=== PATIENT | female | born 1985 | race Caucasian/White ===

== ENCOUNTER 2023-12-02 19:11 | Emergency (ER) | payer OTHER ==
[~2023-12-02] VITALS: Ht 152.4 cm; Wt 65.9 kg
[~2023-12-02 19:11] MED LIST: [UNRECOGNIZED DRUG - OTHER]
[2023-12-02 19:35] VITALS: TEMP 97.9
[2023-12-02 22:47] LABS: BASOPHILS % (AUTO) 0.3 % (0.0-2.0); EOSINOPHILS % (AUTO) 0.6 % (1.0-6.0); HEMATOCRIT 34.1 % (36-46); HEMOGLOBIN 11.3 g/dL (12.0-16.0); LYMPHOCYTES # (AUTO) 2.5 K/uL (1.0-4.8); LYMPHOCYTES % (AUTO) 37.4 % (22.0-44.0); MEAN CORPUSCULAR HEMOGLOBIN 28.7 pg (26.0-34.0); MEAN CORPUSCULAR HGB CONC 33.1 G/dL (31.0-37.0); MEAN CORPUSCULAR VOLUME 87 fL (80-100); MONOCYTES # (AUTO) 0.6 K/uL (0.1-1.0); MONOCYTES % (AUTO) 9.3 % (2.0-9.0); NEUTROPHILS # (AUTO) 3.5 K/uL (1.8-7.7); NEUTROPHILS % (AUTO) 52.4 % (40.0-70.0); PLATELET COUNT (AUTO) 212 K/uL (150-450); RED BLOOD CELL COUNT(AUTO) 3.94 MIL/uL (4.00-5.20); RED CELL DISTRIBUTION WIDTH 14.8 % (11.5-14.5); WHITE BLOOD COUNT (AUTO) 6.7 K/uL (4.5-11.0)
[2023-12-02] MEDS: SODIUM CHLORIDE 0.9% 1,000 ML IV ONE (23:01)
[2023-12-02 23:05] LABS: ANION GAP 11 mmol/L (8-16); CALCIUM, TOTAL 9.2 mg/dL (8.8-10.5); CARBON DIOXIDE 23 mmol/L (22-29); CHLORIDE 103 mmol/L (98-107); CREATININE 0.64 mg/dL (0.60-1.30); GLOMERULAR FILTR. RATE CALC > 60 mL/min (>60); GLUCOSE,RANDOM 103 mg/dL (70-110); SODIUM SERUM 137 mmol/L (136-145); UREA NITROGEN, BLOOD 13 mg/dL (7-18)
[2023-12-02 23:11] LABS: ALANINE AMINOTRANSFERASE 30 U/L (12-78); ALBUMIN 3.8 g/dL (3.4-5.0); ALKALINE PHOSPHATASE 60 U/L (46-116); ASPARTATE AMINOTRANSFERASE 16 U/L (15-37); BILIRUBIN,TOTAL 0.5 mg/dL (0.1-1.0); TOTAL PROTEIN, SERUM 7.7 g/dL (6.4-8.2)
[2023-12-02] MEDS ORDERED: IOHEXOL 350 MG/ML 100 ML VIAL ONE (23:13)
[2023-12-02] MEDS ORDERED: SODIUM CHLORIDE 0.9% 100 ML ONE (23:13)
[2023-12-03 02:22] VITALS: BP 134/84; PULSE 75; RESP 14
== END 2023-12-03 02:36 | disposition home or self-care (01) ==
LOC: EMS 19:17
DX: S10.93XA Contusion of unspecified part of neck, initial encounter (principal); F32.A Depression, unspecified; X58.XXXA Exposure to other specified factors, initial encounter; Y93.89 Activity, other specified; Y92.89 Other specified places as the place of occurrence of the external cause; Y99.8 Other external cause status
CPT/HCPCS: 99285; 70487; 96360; 80053; 84703; 85025; 36415; 70491; Q9967; J7030; J7050